=== PATIENT | female | born 1990 | race African-American/Black ===

== ENCOUNTER 2018-07-06 14:37 | Emergency (ER) | payer SELFPAY ==
[2018-07-06 17:03] LABS: ABSOLUTE EOSINOPHILS # (AUTO) 0.3 10^3/uL (0.0-0.6); ABSOLUTE LYMPHOCYTES (AUTO) 2.8 10^3/uL (0.5-4.7); ABSOLUTE MONOCYTES (AUTO) 0.7 10^3/uL (0.1-1.4); ABSOLUTE NEUT (AUTO) 6.1 10^3/uL (1.7-8.2); BASOPHILS % (AUTO) 0.5 % (0-2); EOSINOPHILS % (AUTO) 2.8 % (0-6); HEMATOCRIT 39.2 % (36.0-47.0); HEMOGLOBIN 13.5 g/dL (12.0-15.5); LYMPHOCYTES % (AUTO) 28.2 % (13-45); MEAN CORPUSCULAR HEMOGLOBIN 30.7 pg (27.0-33.4); MEAN CORPUSCULAR HGB CONC 34.3 g/dL (32.0-36.0); MEAN CORPUSCULAR VOLUME 90 fl (80-97); MONOCYTES % (AUTO) 6.9 % (3-13); PLATELET COUNT 245 10^3/uL (150-450); RED BLOOD COUNT 4.38 10^6/uL (3.72-5.28); RED CELL DISTRIBUTION WIDTH 13.5 % (11.5-14.0); SEGMENTED NEUTROPHILS % (AUTO) 61.6 % (42-78); TOTAL CELLS COUNTED % (AUTO) 100 %
[2018-07-06 17:34] LABS: ALANINE AMINOTRANSFERASE 26 U/L (9-52); ALBUMIN 4.6 g/dL (3.5-5.0); ALKALINE PHOSPHATASE 58 U/L (38-126); ANION GAP 9 (5-19); ASPARTATE AMINO TRANSFERASE 24 U/L (14-36); BILIRUBIN,DIRECT 0.1 mg/dL (0.0-0.4); BILIRUBIN,TOTAL 0.2 mg/dL (0.2-1.3); BLOOD UREA NITROGEN 14 mg/dL (7-20); CALCIUM 9.1 mg/dL (8.4-10.2); CARBON DIOXIDE 24 mmol/L (22-30); CHLORIDE 105 mmol/L (98-107); GLUCOSE 112 mg/dL (75-110); POTASSIUM 4.5 mmol/L (3.6-5.0); SODIUM 137.9 mmol/L (137-145); TOTAL PROTEIN 7.6 g/dL (6.3-8.2)
--- NOTE | 2018-07-06 18:02 | ER Document Report ---
ED General - General Chief Complaint: Weakness Stated Complaint: WEAKNESS Time Seen by Provider: 07/06/18 16:01 Primary Care Provider: [facility] [Provider Group] - 07/13/18 Notes: Patient is a 28-year-old female who presents emergency department with a chief complaint of weakness. She was at work and was feeling achy all over. She also states that she had a sharp pain for about 30 minutes, but it has gone away. Did have some nausea, but no vomiting earlier today. She denies any dysuria or vaginal discharge. She has history of a tubal ligation and 3 pregnancies. No other past medical history. - Related Data Allergies/Adverse Reactions: No Known Allergies Allergy (Unverified 07/06/18 14:39) Past Medical History - Social History Smoking Status: Current Every Day Smoker Frequency of alcohol use: None Drug Abuse: None Family History: Reviewed & Not Pertinent Patient has suicidal ideation: No Patient has homicidal ideation: No Renal/ Medical History: Denies: Hx Peritoneal Dialysis Review of Systems - Review of Systems Notes: REVIEW OF SYSTEMS: CONSTITUTIONAL : Denies recent illness. Denies recent unintentional weight loss. Denies fever, chills, or sweats. EENT: Denies eye, ear, throat, or mouth pain, discharge, or symptoms. Denies nasal or sinus congestion. CARDIOVASCULAR: Denies chest pain. RESPIRATORY: Denies shortness of breath, cough, congestion, difficulty breathing, or wheezing. GASTROINTESTINAL: See HPI GENITOURINARY: Denies difficulty urinating, burning, blood in urine, urgency or frequency. FEMALE GENITOURINARY: See HPI. LMP: Beginning of June MUSCULOSKELETAL: Denies neck and back pain. Denies joint pain or swelling. SKIN: Denies rash, itchiness, or lesions HEMATOLOGIC : Denies easy bruising or bleeding. LYMPHATIC: Denies swollen, painful, enlarged glands. NEUROLOGICAL: Denies no numbness or tingling denies weakness. Denies headache. Denies altered mental status. Denies alteration in speech. PSYCHIATRIC: Denies stress, anxiety, alteration in sleep patterns, or depression. All other systems reviewed and negative. Physical Exam - Vital signs Vitals: Temp Pulse Resp BP Pulse Ox 98.1 F 102 H 18 132/71 H 99 07/06/18 14:44 07/06/18 14:44 07/06/18 14:44 07/06/18 14:44 07/06/18 14:44 - Notes Notes: PHYSICAL EXAMINATION: GENERAL: Appears well, healthy, well-nourished, no acute distress. HEAD: Normocephalic, atraumatic. EYES: PERRL, conjunctiva normal, all extraocular movements intact, sclera nonicteric ENT: Moist mucous membranes. NECK: Supple, no noticeable swelling, redness, rash. Normal range of motion. LUNGS: Equal breath sounds bilaterally and clear to auscultation. No wheezes rales or rhonchi. CARDIOVASCULAR: S1-S2, regular rate, regular rhythm. Radial pulses 2+, normal. ABDOMEN: Normoactive bowel sounds. Soft, tender mid-right abdomen in the pelvic region, no guarding, no rebound tenderness, and no masses palpated. EXTREMITIES: Normal strength and range of motion, no pitting or edema. No cyanosis. NEUROLOGICAL: Moves all extremities upon command. Strength 5/5 in all extremities. PSYCH: Normal mood, normal affect. SKIN: Warm, dry. No rash, lesions, ulcerations noted. Normal skin turgor. Course - Re-evaluation Re-evalutation: 07/06/18 18:09 Patient's CBC and chemistries are unremarkable. Pelvic exam will be done to determine if the patient has any cervical motion tenderness. 07/06/18 19:13 Since urinalysis shows large leukocytes in her urine. No CVA tenderness noted. I do not suspect patient has a infected stone. She is positive for chlamydia, she will be treated for both gonorrhea and chlamydia. Pelvic exam was done with MANDY Castellanos at bedside. Patient did not have any cervical motion tenderness, but I will still treat her with doxycycline as it will also cover her for urinary tract infection. I have discussed with the patient that she needs to have her partner tested and treated for chlamydia. She also has an ovarian cyst on her right side. Verbal discharge instructions were given to the patient. They verbalized understanding. They are stable for discharge. - Vital Signs Vital signs: Temp Pulse Resp BP Pulse Ox 98.5 F 72 18 113/72 100 07/06/18 19:57 07/06/18 19:57 07/06/18 19:57 07/06/18 19:57 07/06/18 19:57 - Laboratory Result Diagrams: 07/06/18 16:39 07/06/18 16:39 Laboratory results interpreted by me: 07/06/18 07/06/18 07/06/18 16:30 16:39 18:20 Glucose 112 H Urine Urobilinogen 2.0 H Ur Leukocyte Esterase LARGE H Chlamydia DNA (PCR) DETECTED H Discharge - Discharge Clinical Impression: STI (sexually transmitted infection) Abdominal pain Qualifiers: Abdominal location: lower abdomen, unspecified Qualified Code(s): R10.30 - Lower abdominal pain, unspecified Ovarian cyst Qualifiers: Laterality: right Qualified Code(s): N83.201 - Unspecified ovarian cyst, right side Urinary tract infection Qualifiers: Urinary tract infection type: acute cystitis Hematuria presence: without hematuria Qualified Code(s): N30.00 - Acute cystitis without hematuria Condition: Stable Disposition: HOME, SELF-CARE Additional Instructions: You were seen today in the emergency department for weakness and abdominal pain. You have tested positive for chlamydia. You have been treated for both gonorrhea and chlamydia here in the emergency department. You also have an ovarian cyst, please follow-up with [facility] in regards to this ovarian cyst. You also have a urinary tract infection. You are being treated with antibiotics for this and pelvic inflammatory disease. You have been given Zofran, medication for nausea, you may take 1 tablet every 4-6 hours as needed for nausea. Make sure you stay well-hydrated. If you develop w orsening abdominal pain, develop a fever greater than 100.4 F, or have any symptoms that are worrisome to you, please return to the emergency department. Prescriptions: Doxycycline Hyclate 100 mg PO BID #28 capsule Metronidazole [Flagyl 500 mg Tablet] 500 mg PO Q6H #28 tablet Forms: Return to Work Referrals: [facility] [Provider Group] - 07/13/18
[2018-07-06] MEDS ORDERED: ONDANSETRON 4 MG TAB.RAPDIS PO ONE (18:11)
[2018-07-06 18:34] LABS: CHLAM PCR DETECTED (NOT DETECT); GON PCR NOT DETECTED (NOT DETECT)
[2018-07-06 18:51] LABS: AMORPHOUS SEDIMENT,URINE TRACE /HPF; APPEARANCE,URINE CLOUDY; BILIRUBIN,URINE NEGATIVE (NEGATIVE); COLOR,URINE YELLOW; GLUCOSE, URINE NEGATIVE (NEGATIVE); KETONES,URINE NEGATIVE (NEGATIVE); LEUKOCYTE ESTERASE,URINE LARGE (NEGATIVE); NITRITE,URINE NEGATIVE (NEGATIVE); PROTEIN,URINE NEGATIVE (NEGATIVE); URINE SPECIFIC GRAVITY 1.025
--- NOTE | 2018-07-06 19:13 | RADIOLOGY REPORT (SQ) ---
EXAM DESCRIPTION: U/S NON OB PEL TV W/DOPPLER COMPLETED DATE/TIME: 07/06/2018 6:55 pm REASON FOR STUDY: pelvic pain tubal ligation. LMP 06/27/2018. COMPARISON: None. TECHNIQUE: Dynamic and static grayscale images acquired of the pelvis via transvaginal approach and recorded on PACS. Additional selected color Doppler and spectral images recorded. LIMITATIONS: None. FINDINGS: UTERUS: Contour normal. No mass. ENDOMETRIAL STRIPE: No focal or generalized thickening. No masses. CERVIX: 3 cm. No nabothian cysts. RIGHT OVARY AND DOPPLER: Normal size. No worrisome masses. Normal arterial vascular flow without evid ence for torsion. There is a complex right ovarian cyst measuring 4 x 2.6 x 3.6 cm. LEFT OVARY AND DOPPLER: Normal size. No worrisome masses. Normal arterial vascular flow without evide nce for torsion. FREE FLUID: None noted. OTHER: No other significant finding. MEASUREMENTS: UTERUS: 9 x 4.5 x 4.8 cm. ENDOMETRIAL STRIPE: 14 mm. RIGHT OVARY: 4.9 x 4.1 x 4.7 cm. LEFT OVARY: 2.7 x 2.2 x 1.9 cm. IMPRESSION: There is a complex right ovarian cyst as described. This may represent a hemorrhagic cy st. TECHNICAL DOCUMENTATION: JOB ID: [id number] All Rights Reserved Rev-10/29 Reading location - IP/workstation name: [email or web address]
[2018-07-06] MEDS ORDERED: LIDOCAINE 1% INJ-PF (10 MG/ML) 30 ML SDV INJ ONE (19:16)
[2018-07-06] MEDS ORDERED: AZITHROMYCIN 250 MG TABLET PO ONE (19:16)
[2018-07-06] MEDS ORDERED: CEFTRIAXONE INJ 250 MG VIAL IM ONE (19:16)
[2018-07-06] MEDS ORDERED: ONDANSETRON ODT 4 MG TAB (6 TAB/ER DISP) PO PRN (19:22)
[2018-07-06 20:01] VITALS: BP 113/72
== END 2018-07-06 20:01 | disposition home or self-care (01) ==
LOC: ER 14:37
DX: N30.00 Acute cystitis without hematuria (principal); A74.9 Chlamydial infection, unspecified; A64 Unspecified sexually transmitted disease; N83.201 Unspecified ovarian cyst, right side; R53.1 Weakness; R11.0 Nausea; F17.200 Nicotine dependence, unspecified, uncomplicated; Z98.51 Tubal ligation status
CPT/HCPCS: 99284; 96372; 36415; 84703; 85025; 80053; 81001; 87491; 87591; 76830; 93976; S0119; J3490; J0696